=== PATIENT | male | born 1995 | race Caucasian/White ===

== ENCOUNTER 2019-12-26 14:11 | Emergency (ER) | payer SELFPAY ==
[2019-12-26 14:26] VITALS: BP 126/78; PULSE 82; RESP 16; TEMP 37.2; O2SAT 98; BMI 22.3
[2019-12-26 14:38] VITALS: BP 126/78; PULSE 82; RESP 16; TEMP 37.2; O2SAT 98; BMI 22.4
--- NOTE | 2019-12-26 14:55 | HMH.EDUTC ---
[facility] [place] Clinical Impression: Viral syndrome Pharyngitis Qualifiers: Pharyngitis/tonsillitis etiology: unspecified etiology Qualified Code(s): J02.9 - Acute pharyngitis, unspecified Disposition: Home, Self-Care Condition on Discharge: Good Instructions: DI for Viral Syndrome Additional Instructions: Drink plenty of fluids. Take tylenol or ibuprofen for pain or fever. Take the medications as directed. Follow up with your regular doctor. GO TO THE ER FOR ANY WORSENING SYMPTOMS FOLLOW THE DIRECTIONS ON THE COVID-19 HAND OUT THAT WE GAVE YOU REGARDING SELF-ISOLATION UNTIL YOU KNOW YOUR COVID-19 RESULTS Prescriptions: Brompheniramine/Pseudoephed/Dm [Bromfed Dm Cough Syrup] 5 ml PO Q6HP PRN #240 syrup PRN Reason: Cough Transmission Status: Received by [facility] # Azithromycin [Z-Blu 250mg Tab*] 250 mg PO UD DOSE PK #6 tab Transmission Status: Received by [facility] # Referrals: PCP,No [Primary Care Provider] - Forms: Work/School Release Time of Disposition: 15:07 Medical Decision Making - Medical Records Medical records reviewed: No: I reviewed the patient's medical records. - Jakob Inquiry Pt receiving controlled substance: No Vital Signs: 12/26/19 14:26 12/26/19 14:38 12/26/19 15:15 Temperature 99 F 99.0 F 99.0 F Temperature Source Oral Oral Pulse Rate 82 Pulse Rate [Left Radial] 82 82 Respiratory Rate 16 16 16 Blood Pressure 126/78 Blood Pressure [Right Arm] 126/78 126/78 Blood Pressure Mean [Right Arm] 94 94 Blood Pressure Source [Right Arm] Automatic Cuff Blood Pressure Position [Right Arm] Sitting Sitting 02 Sat by Pulse Oximetry 98 98 Oxygen Delivery Method Room Air Room Air - Lab Data Lab results reviewed: Yes: I reviewed the patient's lab results. Orders (Tests/Meds): ORDERS Category Date Time Status Covid-19 Nasal PCR Sendout [facility] 12/26/19 15:00 Received [facility] [place] H[place] - General Stated complaint: flu like synptons Time Seen by Provider: 12/26/19 14:55 Mode of Arrival: Ambulatory Source of Information: Patient Limitations: No Limitations Description of Symptoms (Recalled from Triage Doc. by RN): PATIENT C/O BODY ACHES AND COLD CHILLS THAT STARTED THIS MORNING. STATES HE FEELS LIKE HE HAS THE FLU. HEENT Symptoms (Recalled from RN notes): No Resp Symptoms (Recalled from RN notes): No Skin Symptoms (Recalled from RN notes): No MS Symptoms (Recalled from RN notes): Yes Functional Status (Recalled from RN notes): WNL - History of Present Illness Provider Complaint: He states that he started chilling and feeling bad yesterday evening. He has not checked his temp, but he has felt like he was running a fever. He denies any known exposure to covid-19. - Related Data Previous Rx's Medication Instructions Recorded Azithromycin [Z-Blu 250mg Tab*] 250 mg PO UD DOSE PK #6 tab 12/26/19 Brompheniramine/Pseudoephed/Dm 5 ml PO Q6HP PRN #240 syrup 12/26/19 [Bromfed Dm Cough Syrup] Allergies Allergy/AdvReac Type Severity Reaction Status Date / Time No Known Allergies Allergy Verified 12/26/19 14:42 - Worker's Comp Is this a Worker's Comp case?: No [facility] History - Hepatitis A Screen Drug use history?: No High risk sexual behaviors?: No History of sexually transmitted infection?: No Currently employed?: No Childcare worker?: No Do you have indoor plumbing?: Yes Do you have electricity?: Yes Attestation statement:: This patient has been screened for Hepatitis A risk factors. I have reviewed the patient's past medical history: Yes - Social History Alcohol Intake: never Occupational Status: other ROS Obtained: Yes All systems reviewed & no additional complaints - Constitutional Constitutional: Reports chills, Reports fever(s), Reports frequent falls, Reports poor appetite - Eyes Eyes: Denies eye discharge - ENT Ears, Nose, Mouth, and Throat: Reports dizziness, Reports carla
[2019-12-26 15:15] VITALS: BP 126/78; PULSE 82; RESP 16; TEMP 37.2; O2SAT 98
[2019-12-26 20:59] LABS: UTC Influenza A Antigen Negative (Negative); UTC Influenza B Antigen Negative (Negative)
[2019-12-27 17:16] LABS: Covid-19 Nasal PCR Sendout UK NOT DETECTED
== END 2019-12-26 15:16 | disposition home or self-care (01) ==
PROVIDERS: Emergency Provider Nurse Practitioner Family
DX: B34.9 Viral infection, unspecified (principal); J02.9 Acute pharyngitis, unspecified; Z20.828 Contact with and (suspected) exposure to other viral communicable diseases
CPT/HCPCS: 87804; 99201; U0003